=== PATIENT | female | born 1990 | race Caucasian/White ===

== ENCOUNTER 2016-03-23 17:11 | Outpatient (CLI) | payer SELFPAY ==
[~2016-03-23] VITALS: Ht 167.6 cm; Wt 61.2 kg
[~2016-03-23 17:11] MED LIST: NITR-58 PO; ONDA4TAB8 PO
[2016-03-23 19:01] VITALS: Ht 167.6 cm; Wt 61.2 kg
[2016-03-23 19:02] VITALS: BP 107/53; PULSE 65; RESP 18
--- NOTE | 2016-03-23 19:25 | RADRPT ---
PROCEDURE: US OB. CLINICAL INDICATION: , evaluation. Pelvic pain. TECHNIQUE: Multiple sonographic images of the pelvis were obtained. Transabdominal imaging only w as performed. The images were reviewed on a PACS workstation. COMPARISON: Pelvic ultrasound 12/21/2015 FINDINGS: Cervix measures 3.36 cm in length and contains fluid measuring centrally 5.5 mm in diameter; interna l and external cervical os appear closed. Single intrauterine gestation. There is a cephalic presentation. Measurements were made in order to determine age. The results are as follows: BPD = 5.99 cm HC = 21.55 cm AC = 18.74 cm FL = 3.93 cm Heart rate = 144 beats per minute The placenta is posterior. There is no evidence for an abruption or placenta previa. Ovaries are not visualized. IMPRESSION: Single intrauterine gestation of approximately 23 weeks 4 days by ultrasound criteria. Estimated weight = 575 g; 87 percentile for estimated ultrasound age. Cervix measures 3.36 cm in length and contains fluid measuring centrally 5.5 mm in diameter; interna l and external cervical os appear closed. RPTAT: AADD .Ronal Amezquita MD, Date Time Electronically viewed and signed by .Ronal Amezquita MD, MD on 03/23/2016 19:24 .B/
[2016-03-23 20:27] LABS: ADD UMIC YES; URINE BILIRUBIN (Dip) NEGATIVE (NEGATIVE); URINE BLOOD (Dip) NEGATIVE (NEGATIVE); URINE COLOR LT. YELLOW (YELLOW); URINE GLUCOSE (Dip) NEGATIVE (NEGATIVE); URINE KETONES (Dip) NEGATIVE (NEGATIVE); URINE LEUKOCYTE ESTERASE (Dip) 3+ (NEGATIVE); URINE NITRITE (Dip) NEGATIVE (NEGATIVE); URINE TOTAL PROTEIN (Dip) NEGATIVE (NEGATIVE); URINE UROBILINOGEN (Dip) 0.2 E.U./dL (0.1-1.0)
[2016-03-23] MEDS ORDERED: LACTATED RINGER'S 1,000 ML IV STA (20:30)
[2016-03-23 20:39] LABS: URINE RBCS 0-2 /HPF (0)
[2016-03-23 20:40] LABS: BACTERIA,URINE MODERATE; SQUAMOUS EPITHELIAL CELL,UR MANY
[2016-03-23 21:33] LABS: BARBITURATES NEGATIVE (NEGATIVE); BENZODIAZEPINES NEGATIVE (NEGATIVE); CANNABINOIDS POSITIVE (NEGATIVE); COCAINE NEGATIVE (NEGATIVE); OPIATES NEGATIVE (NEGATIVE)
[2016-03-23 21:36] LABS: BASOPHIL # 0.1 10^3/ul (0.0-0.1); BASOPHILS % 0.7 % (0.0-2.0); EOSINOPHILS # 0.1 10^3/ul (0.0-0.5); EOSINOPHILS % 0.5 % (0.0-7.0); HEMATOCRIT 29.1 % (37.0-47.0); HEMOGLOBIN 9.9 g/dl (12.0-16.0); LYMPHOCYTES # 2.4 10^3/ul (0.8-2.9); LYMPHOCYTES % 21.3 % (15.0-51.0); MEAN CORPUSCULAR HEMOGLOBIN 30.8 pg (29.0-33.0); MEAN CORPUSCULAR HGB CONC 33.8 g/dl (32.0-37.0); MEAN PLATELET VOLUME 7.6 fl (7.4-10.4); MONOCYTE # 0.6 10^3/ul (0.3-0.9); NEUTROPHIL # 8.1 10^3/ul (1.6-7.5); NEUTROPHILS % 72.5 % (39.0-77.0); PLATELET COUNT 317 10^3/UL (140-440); RED CELL DISTRIBUTION WIDTH 13.3 % (11.5-14.5); UNCORRECTED WBC 11.2 10^3/ul (4.8-10.8); WHITE BLOOD COUNT 11.2 10^3/ul (4.8-10.8)
[2016-03-23 21:37] LABS: CONDITION 1
--- NOTE | 2016-03-23 23:48 | TRIAGE ---
OB Triage Datetime Report Generated by CPN: 03/23/2016 23:47 Datetime: 03/23/2016 20:59 Pain Assessment Pain Scale: 0 Pain Presence: None/Denies Pain Type: N/A Pain Goal: 0 Pain Relief Measures: Comfort Measures Datetime: 03/23/2016 18:38 Time of Arrival: 03/23/2016 17:09 EGA: 22.2 Arrived By: Ambulatory Arrived From: Home Chief Complaint: R/ O PTL Movement: Present Contractions: Irregular Contractions: 4-5 Rupture of Membranes: Denies Vaginal Discharge: Denies Recent Sexual Intercouse: Denies Abdominal Trauma: Not Applicable Patient Complaints: Contractions; Cramping Provider Notified: SANDRA
--- NOTE | 2016-03-24 01:30 | QN ---
Documentation Comment 25 years old with IUP at 21 weeks and 3 days by her 9 weeks ultrasound, presented of anxiety and mild cramps. She denies any leaking of fluid or vaginal bleeding. Denies any other complaint. Patient had a history of UTI in current in Dec 2015, at 9 weeks when she presented with UTI symptoms to ED and was given macrobid. she had severe nausea with that medication and vomiting,. Currently denies any fever. chills, pain with urination or flank pain. GA: A&O, NAD abdomen: Soft'non tender. No CVA tenderness. fundal height correlates with GA and to 21-22 weeks She was noted to have contractions every 3-4 min on the montior. feels very slight crampy pain UA : suspicious for UTI CL: 3. 36 cm and cervix closed at internal and external os by ultrasound. UA: 3 + Leukocyte estrase. Culture sent Assessment: IUP at 21 weeks and 3 days Contractions, can not r/o UTI Non vialble IUP Recommended to be started on abx, Keflex given for 7 days Culture sent,. pending. She will have a follow up with her Ob clinic in 2 days, . if negative can stop Adequate PO Hydration discussed Strict labor precaution discussed Patient verbalized understanding all above discussion BRENDA FLORES MD Mar 24, 2016 01:29
== END 2016-03-23 23:45 | disposition home or self-care (01) ==
LOC: OBT 17:11 → L-D 17:13 → OBT 23:45
PROVIDERS: ATTEND Obstetrics & Gynecology Obstetrics
DX: O62.9 Abnormality of forces of labor, unspecified (principal); Z3A.21 21 weeks gestation of pregnancy
CPT/HCPCS: 36415; 76815; 76817; 81001; 85025; 86850; 86900; 86901; 87086; 96360; 96361; G0463; G0479; J7120; 80307; 81003

== ENCOUNTER 2016-07-09 08:40 | Inpatient (IN) | payer MEDICAID ==
[~2016-07-09] VITALS: Ht 170.2 cm; Wt 69.1 kg
[2016-07-09] MEDS: LACTATED RINGER'S 1,000 ML IV* SCH ×2 (00:09→18:13)
[2016-07-09 08:55] VITALS: Ht 170.2 cm; Wt 69.1 kg
[2016-07-09 08:57] VITALS: BP 126/70; PULSE 79; RESP 20
[2016-07-09] MEDS ORDERED: LACTATED RINGER'S 1,000 ML IV PRN (09:00)
[2016-07-09] MEDS ORDERED: LACTATED RINGER'S 1,000 ML IV SCH (09:01)
[2016-07-09] MEDS ORDERED: OXYTOCIN 30 UNITS/LR 500 ML IV SCH (09:30)
[2016-07-09] MEDS ORDERED: OXYTOCIN 30 UNITS/LR 500 ML IV PRN ×2 (09:30→15:30)
[2016-07-09] MEDS ORDERED: IBUPROFEN 600 MG TAB PO PRN (09:30)
[2016-07-09] MEDS ORDERED: MISOPROSTOL 200 MCG TAB PR PRN ×2 (09:30→15:30)
[2016-07-09] MEDS ORDERED: FENTAnyl 50 MCG/ML VIAL IV PRN (09:30)
[2016-07-09] MEDS ORDERED: LIDOCAINE 1% (MPF) 30 ML INJ INJ PRN (09:30)
[2016-07-09] MEDS ORDERED: CARBOPROST 250 MCG INJ IM PRN ×2 (09:30→15:30)
[2016-07-09] MEDS ORDERED: BUTORPHANOL 2 MG INJ IV PRN ×2 (09:30)
[2016-07-09] MEDS ORDERED: METHYLERGONOVINE 0.2 MG INJ IM PRN ×2 (09:30→15:30)
[2016-07-09] MEDS: LACTATED RINGER'S 1,000 ML IV SCH ×2 (09:35→11:15)
[2016-07-09 09:57] LABS: ADD SCAN DIFF NO
[2016-07-09 10:18] LABS: BASOPHILS % 0.2 % (0.0-2.0); EOSINOPHILS % 0.2 % (0.0-7.0); HEMATOCRIT 32.9 % (37.0-47.0); HEMOGLOBIN 11.1 g/dl (12.0-16.0); LYMPHOCYTES # 1.9 10^3/ul (0.8-2.9); LYMPHOCYTES % 10.7 % (15.0-51.0); MEAN CORPUSCULAR HEMOGLOBIN 30.3 pg (29.0-33.0); MEAN CORPUSCULAR HGB CONC 33.7 g/dl (32.0-37.0); MEAN CORPUSCULAR VOLUME 89.9 fl (82.0-101.0); MONOCYTE # 0.8 10^3/ul (0.3-0.9); MONOCYTES % 4.7 % (0.0-11.0); NEUTROPHIL # 14.7 10^3/ul (1.6-7.5); NEUTROPHILS % 82.9 % (39.0-77.0); PLATELET COUNT 294 10^3/UL (140-415); RED BLOOD COUNT 3.66 10^6/ul (4.20-5.40); RED CELL DISTRIBUTION WIDTH 14.4 % (11.5-14.5); WHITE BLOOD COUNT 17.7 10^3/ul (4.8-10.8)
[2016-07-09] MEDS ORDERED: FENTAnyl 2MCG/ML-ROPIV 0.2% 100 ML ONE (10:26)
[2016-07-09 10:38] LABS: INR 0.82; PROTIME 11.3 Sec (12.2-14.2); PT RATIO 0.9
[2016-07-09 10:39] LABS: PARTIAL THROMBOPLASTIN TIME 24.3 Sec (25.0-35.0)
[2016-07-09] MEDS ORDERED: NALOXONE (0.4 MG/ML) INJ IV PRN (11:30)
[2016-07-09] MEDS ORDERED: FENTAnyl 2MCG/ML-ROPIV 0.2% 100 ML BAG EPI SCH (11:30)
[2016-07-09] MEDS: OXYTOCIN 30 UNITS/LR 500 ML IV SCH ×2 (12:11→13:51)
--- NOTE | 2016-07-09 12:58 | HP ---
Date/Time of Note Date/Time of Note DATE: 07/09/16 TIME: 12:56 OB - History Hx of Present Chief Complaint: contractions Estimated Due Date: July 25, 2016 : 1 Para: 0 Care: Limited Care Ultrasounds: Normal mid trimester US Obstetrical Complications: None Medical Complications: None Past Family/Social History * Past Medical, Surgical, Family and Obstetric Histories reviewed from chart. GBS Status: Negative OB Admission Exam Vital Signs Vital Signs Vital Signs Date Time Temp Pulse Resp B/P Pulse Ox O2 Delivery O2 Flow Rate FiO2 07/09/16 08:57 97.4 79 20 126/70 Room Air Physical Exam HEENT: WNL Heart: Rhythm Normal Abdomen: WNL Extremities: Normal Cervical Dilatation: 5cm Effacement: 75% Station: -1 Membranes: Ruptured Amniotic Fluid: Clear Heart Rate: 120's Accelerations: Accelerations Present Decelerations: No Decelerations Varibility: Moderate Last 72 hours Lab Results CBC & BMP 07/09/16 09:35 OB Assessment/Plan Reason for admission: active labor Plan: Expectant Management ZEN PACKER MD Jul 09, 2016 12:58
--- NOTE | 2016-07-09 13:01 | LDN ---
Date/Time of Note Date/Time of Note DATE: 07/09/16 TIME: 12:58 Delivery Summary Weeks of Gestation 37 weeks and 5 days Placenta Delivered: Spontaneously Meconium: none Episiotomy: No Perineal laceration: 1 Laceration repair: Second degree laceration repaired with 3-0 [place] 3-0 chromic. Anesthesia type: Epidural Estimated blood loss: 200 Sponge & Needle done & correct: Yes All needle counts correct: Yes Any foreign bodies felt in the: No Problems: Infant Delivery Information Sex Infant Sex: male Apgars 1 Minute: 9 5 Minute: 9 Suctioning Nose & mouth suctioned at genna: Yes Delee suction performed: No Umbilical Cord Umbilical cord with: 3 Vessels Cord presentations: nuchal cord Nuchal cord present X: 1 Cord Blood was obtained: Yes Mother & Baby Disposition Disposition Mom & Baby to Maternity; Good: Yes ZEN PACKER MD Jul 09, 2016 13:01
[2016-07-09 14:50] VITALS: BP 124/62; PULSE 57; RESP 19
[2016-07-09] MEDS ORDERED: DIBUCAINE 1% 30 GM OINT PR PRN (15:30)
[2016-07-09] MEDS ORDERED: ACETAMINOPHEN 325 MG TAB PO PRN (15:30)
[2016-07-09] MEDS ORDERED: ACETAMINOPHEN/CODEINE #3 TAB PO PRN (15:30)
[2016-07-09] MEDS ORDERED: BENZOCAINE 20% 56 ML SPRAY TOP PRN (15:30)
[2016-07-09 16:10] VITALS: BP 119/60; PULSE 62; RESP 18
[2016-07-09] MEDS: WITCH HAZEL/GLYCERIN PAD PR PRN (17:53)
[2016-07-09] MEDS: IBUPROFEN 600 MG TAB PO SCH (17:53)
[2016-07-09 20:00] VITALS: BP 105/58; PULSE 75; RESP 20
[2016-07-09] MEDS: SENNA/DOCUSATE NA (8.6MG/50MG) TAB PO SCH (21:54)
[2016-07-10] MEDS: IBUPROFEN 600 MG TAB PO SCH ×4 (00:08→17:53)
[2016-07-10 00:30] VITALS: BP 110/57; PULSE 71; RESP 20
[2016-07-10 04:35] VITALS: BP 109/53; PULSE 75; RESP 20
[2016-07-10] MEDS: LACTATED RINGER'S 1,000 ML IV* SCH (06:57)
[2016-07-10 07:53] LABS: ADD SCAN DIFF NO
[2016-07-10 08:01] LABS: BASOPHIL # 0.1 10^3/ul (0.0-0.1); BASOPHILS % 0.4 % (0.0-2.0); EOSINOPHILS % 0.3 % (0.0-7.0); HEMATOCRIT 28.1 % (37.0-47.0); HEMOGLOBIN 9.6 g/dl (12.0-16.0); LYMPHOCYTES % 14.4 % (15.0-51.0); MEAN CORPUSCULAR HEMOGLOBIN 31.1 pg (29.0-33.0); MEAN CORPUSCULAR HGB CONC 34.2 g/dl (32.0-37.0); MEAN CORPUSCULAR VOLUME 90.9 fl (82.0-101.0); MEAN PLATELET VOLUME 12.1 fl (7.4-10.4); MONOCYTE # 0.8 10^3/ul (0.3-0.9); MONOCYTES % 5.7 % (0.0-11.0); NEUTROPHIL # 10.9 10^3/ul (1.6-7.5); NEUTROPHILS % 78.1 % (39.0-77.0); PLATELET COUNT 247 10^3/UL (140-415); RED BLOOD COUNT 3.09 10^6/ul (4.20-5.40); RED CELL DISTRIBUTION WIDTH 14.5 % (11.5-14.5); WHITE BLOOD COUNT 13.9 10^3/ul (4.8-10.8)
[2016-07-10 08:10] VITALS: BP 107/60; PULSE 63; RESP 17
[2016-07-10] MEDS: SENNA/DOCUSATE NA (8.6MG/50MG) TAB PO SCH ×2 (09:29→21:52)
[2016-07-10 12:15] VITALS: BP 108/73; PULSE 70; RESP 19
--- NOTE | 2016-07-10 14:33 | QN ---
Documentation Comment No complaint Afebrile VSS Fundus Firm lochia scant PPD #1 Stable Routine pp care. ZEN PACKER MD Jul 10, 2016 14:33
[2016-07-10 16:00] VITALS: BP 117/62; PULSE 72; RESP 16
[2016-07-10 20:00] VITALS: BP 127/79; PULSE 77; RESP 20
[2016-07-10] MEDS: FERROUS SULFATE (EC) 325 MG TAB PO SCH (21:52)
[2016-07-11] MEDS: IBUPROFEN 600 MG TAB PO SCH ×4 (00:36→18:00)
[2016-07-11 04:45] VITALS: BP 110/72; PULSE 56; RESP 18
[2016-07-11] MEDS: WITCH HAZEL/GLYCERIN PAD PR PRN (07:47)
[2016-07-11 08:00] VITALS: BP 110/73; PULSE 62; RESP 16
[2016-07-11] MEDS: FERROUS SULFATE (EC) 325 MG TAB PO SCH ×2 (08:49→12:16)
[2016-07-11] MEDS: SENNA/DOCUSATE NA (8.6MG/50MG) TAB PO SCH (08:49)
[2016-07-11] MEDS ORDERED: DIPHTH/TET/ACEL PERTUSS (ADULT) 0.5 ML VIAL IM* ONE (09:00)
--- NOTE | 2016-07-11 13:31 | DS ---
Date/Time of Note Date/Time of Note DATE: 07/11/16 TIME: 13:31 Obstetrical Discharge Record Final Diagnosis Final Diagnosis: Term delivered Vaginal Delivery Obstetrical Delivery: Spontaneous, Laceration, Repaired Condition on Discharge Physical Assessment Voiding: Yes Bowel Movement: Yes Breast: Soft, non-tender Fundus: Firm Calf Tenderness: No Patient Condition: Stable ZEN PACKER MD Jul 11, 2016 13:31
[2016-07-11 16:00] VITALS: BP 110/72; PULSE 75; RESP 16
== END 2016-07-11 19:15 | disposition home or self-care (01) | DRG 775 ==
LOC: OBT 08:40 → L-D 08:40 → OBT 08:50 → L-D 09:18 → PP1 14:53
PROVIDERS: ADMIT Obstetrics & Gynecology; ATTEND Obstetrics & Gynecology
PROC: 10E0XZZ Delivery of Products of Conception, External Approach (ICD-10-PCS; principal; 2016-07-09)
PROC: 0KQM0ZZ Repair Perineum Muscle, Open Approach (ICD-10-PCS; 2016-07-09)
DX: O69.1XX0 Labor and delivery complicated by cord around neck, with compression, not applicable or unspecified (principal); O70.1 Second degree perineal laceration during delivery; Z3A.37 37 weeks gestation of pregnancy; Z37.0 Single live birth
CPT/HCPCS: 62319; 85025; 85610; 85730; 86592; 86900; 86901; 90715; G0463; J2590; J3010; J7120